=== PATIENT | male | born 1965 | race Caucasian/White ===

== ENCOUNTER 2018-06-16 15:03 | Inpatient (IN) | payer BC ==
[2018-06-16] MEDS ORDERED: Diltiazem 125 MG in Sodium Chloride 0.9% 100 ML IVPB SCH (16:00)
[2018-06-16] MEDS ORDERED: Acetaminophen 500 MG TAB ONE (16:22)
[2018-06-16] MEDS ORDERED: Enoxaparin Sodium 100 MG/ML SYRINGE ONE (17:11)
[2018-06-16] MEDS ORDERED: Enoxaparin Sodium 40 MG/0.4 ML SYRINGE ONE (17:11)
[2018-06-16 17:20] LABS: CKMB 1.5 ng/mL (0-6.6); Troponin I Less than 0.010 ng/mL (< 0.028)
[2018-06-16] MEDS ORDERED: Guaifenesin DM 100-10/5 ML UDCUP PO PRN (19:59)
[2018-06-16] MEDS ORDERED: Senokot S 8.6-50 MG TAB PO PRN (19:59)
[2018-06-16] MEDS: chlordiazePOXIDE HCl 5 MG CAP PO SCH (20:53)
[2018-06-16] MEDS: Sodium Chloride 0.9% 1,000 ML IV SCH (20:53)
[2018-06-16] MEDS: Metoprolol Tartrate 50 MG TAB PO SCH (20:53)
[2018-06-16] MEDS ORDERED: Vancomycin HCl 1 GM in Premix Bag 1 BAG IVPB SCH (21:00)
[2018-06-16 23:33] LABS: Troponin I Less than 0.010 ng/mL (< 0.028)
[2018-06-16] MEDS: Piperacillin/Tazobactam 3.375 GM in Sodium Chloride 0.9% 100 ML IVPB SCH (23:44)
[2018-06-16] MEDS: Acetaminophen 325 MG TAB PO PRN (23:51)
[2018-06-17 01:24] LABS: Lactic Acid 1.2 mmol/L (0.5-2.2)
[2018-06-17] MEDS: Vancomycin HCl 1.75 GM in Sodium Chloride 0.9% 500 ML IVPB SCH ×2 (01:26→15:27)
--- NOTE | 2018-06-17 01:39 | HP ---
REASON FOR ADMISSION: Atrial fibrillation with rapid ventricular response, left hand cellulitis with abscess around left little finger. HISTORY OF PRESENT ILLNESS: Patient gives history of having a splinter injury to his left fifth finger on Saturday. He tried to dig it up on Saturday. Patient had swelling of the hand and finger as well along with purulent discharge from the place where he tried to dig it up. He went to [facility] on Saturday evening and was given antibiotics. Patient had fever of 100 degrees at home. No complaints of chest pain or palpitation. His initial EKG showed atrial fibrillation with RVR. He has no prior history of atrial fibrillation. No prior cardiac workup. Has no exertional dyspnea or chest pain. PAST MEDICAL AND SURGICAL HISTORY: Hypertension, takes 2 medications for the same and does not recall the name; gout; back surgery; left ankle surgery; has chronically swollen left foot due to fusion. CURRENT MEDICATIONS: Takes 2 medications for hypertension. He does not recall. ALLERGIES: SULFA. PERSONAL HISTORY: Drinks 8-10 beers on most days, does not abuse drugs. No history of smoking. FAMILY HISTORY: Mother is living and is in a residential. Father of massive AR at the age of 57 years. REVIEW OF SYSTEMS: The following complete review of systems was negative, unless otherwise mentioned in the HPI or below: Constitutional: Weight loss or gain, ability to conduct usual activities. Skin: Rash, itching. Eyes: Double vision, pain. ENT/Mouth: Nose bleeding, neck stiffness, pain, tenderness. Cardiovascular: Palpitations, dyspnea on exertion, orthopnea. Respiratory: Shortness of breath, wheezing, cough, hemoptysis, fever, or night sweats. Gastrointestinal: Poor appetite, abdominal pain, heartburn, nausea, vomiting, constipation, or diarrhea. Genitourinary: Urgency, frequency, dysuria, nocturia. Musculoskeletal: Pain, swelling. Neurologic/Psychiatric: Anxiety, depression. Allergy/Immunologic: Skin rash, bleeding tendency. PHYSICAL EXAMINATION: GENERAL: Patient is a 53-year-old male who is currently not in any acute distress. VITAL SIGNS: Blood pressure 116/74, pulse 120 per minute, respiratory rate 18 per minute, temperature 100.7 degrees Fahrenheit, saturating 97% on room air. NECK: Supple, no elevated JVD. HEENT: Extraocular muscles intact. Pupils reacting to light. Oral cavity mucous membranes are moist. No exudates or congestion. CARDIOVASCULAR SYSTEM: S1, S2 heard. Regular rhythm. RESPIRATORY SYSTEM: Air entry 1+ bilateral. Scattered rhonchi plus no rales or wheezes. ABDOMEN: Soft, bowel sounds heard. No tenderness, rigidity, or guarding. EXTREMITIES: Left hand is swollen and patient has edema of left little finger with purulent discharge on the medial aspect with a puncture hole at the proximal phalanx. No calf tenderness or ischemic gangrene in the foot. CENTRAL NERVOUS SYSTEM: No gross focal deficits noted. Patient is alert, awake , oriented well. PSYCHIATRIC SYSTEM: Patient's mood is euthymic. No hallucinations or delusions. LABORATORY AND X-RAY FINDINGS: EKG done shows atrial fibrillation with RVR at 126 beats per minute. Chest x-ray done shows no acute cardiopulmonary abnormalities. Influenza A and B antigens are negative. White count of 14, H& H 15 and 45, platelet count 228, MCV is 90 with 91% neutrophils. Sodium 133, potassium 3.3, serum bicarbonate 21, BUN 37, creatinine 2.2, serum glucose 135. Lactic acid 3.4. Liver enzymes are within normal limits. Albumin is 3.7. First set of troponin is negative. CLINICAL IMPRESSION AND PLAN: Patient will be admitted to telemetry for new- onset atrial fibrillation with RVR, sepsis, left hand cellulitis, acute kidney injury. Patient will be gently hydrated with normal saline at 70 mL per hour. We will also place him on vancomycin and Zosyn for his left hand cellulitis. We will consult Dr. Horton who is suction plate roller hand and patient likely needs a hand surgeon for the same. We will also consult Dr. Cruz who is suction plate roller hand for new onset atrial fibrillation with RVR. Patient has history of alcohol abuse and will be placed on Librium 5 mg 3 times daily. Please note, this needs to be held if patient's respiratory rate is less than 14 or he is drowsy. We will continue him on aspirin, Cardizem drip, Lopressor 50 mg twice daily, morphine p.r.n. for pain. Echo with 2D Doppler for LV function will be obtained. We will obtain BNP levels in the morning with morning labs. Blood cultures have been obtained in the ER and follow up on the results. A second set of troponin is ordered and will follow up on the results as well. DARLYN
[2018-06-17 05:50] LABS: Anion Gap 11 mmol/L (10-20); BUN (Urea Nitrogen) 28 mg/dL (8.4-25.7); Calc. Creatinine Clearance 135 mL/min (70-130); Calcium 8.2 mg/dL (7.8-10.44); Carbon Dioxide 16 mmol/L (22-29); Chloride 108 mmol/L (98-107); Estimated GFR-MDRD 56; Glucose 105 mg/dL (70-105); Potassium 3.3 mmol/L (3.5-5.1); Sodium 132 mmol/L (136-145)
[2018-06-17] MEDS: Piperacillin/Tazobactam 3.375 GM in Sodium Chloride 0.9% 100 ML IVPB SCH ×4 (05:57→23:19)
[2018-06-17 06:11] LABS: Band 15 % (5-11); Hemoglobin 14.5 g/dL (14.0-18.0); Lymphocytes 9 % (21-51); MDiff Complete? YES; Mean Corpuscular HGB CONC 32.9 g/dL (32.0-36.0); Mean Corpuscular Hemoglobin 32.2 pg (27.0-31.0); Mean Platelet Volume 6.7 fL (7.4-10.4); Monocytes 8 % (0-10); Neutrophil 68 % (42-75); PLT Morphology Comment Appears Adequate; Platelet Count 194 thou/uL (130-400); RBC Distribution Width 11.8 % (11.5-14.5); RBC Morphology Normal; White Blood Cell (WBC) Count 10.3 thou/uL (4.8-10.8)
--- NOTE | 2018-06-17 08:48 | CON ---
DATE OF CONSULTATION: 06/17/2018 CHIEF COMPLAINT: Left hand infection. HISTORY OF PRESENT ILLNESS: Mr. Sommer is a 54-year-old male who developed an infection of the l eft small digit. He had a small splinter in his hand approximately 4 days ago. He dug this out with a pocket knife. He developed cellulitis around this area as well as some drainage. He presented to the emergency department several days ago and was placed on antibiotics. He had a repeat small I&D at the bedside. No purulence was obtained. His hand continued to swell and slightly worsen so he ca me back to the emergency department. He was admitted last night. He has been on intravenous antibio tics since then. He is responding. He has less swelling and less pain. He has had no further drain age. He has no palmar pain or forearm pain. Cellulitis is based around the splinter site. The patient also has atrial fibrillation with rapid ventricular response. He is on telemetry for thi s as well. PAST MEDICAL HISTORY: Hypertension, gout, chronic edema. PAST SURGICAL HISTORY: Previous lumbar surgery, left ankle fracture surgery. MEDICATIONS: Current medications for hypertension. ALLERGIES: SULFA. SOCIAL HISTORY: The patient drinks alcohol daily. He does not use drugs or smoke. FAMILY MEDICAL HISTORY: Noncontributory. REVIEW OF SYSTEMS: Positive for mild left hand pain, otherwise negative 10-point review of systems c urrently. PHYSICAL EXAMINATION: VITAL SIGNS: Temperature is 98.6, pulse is 98, respiratory rate 20, oxygen saturation 94, blood pres sure is 91/54. GENERAL: He is alert and oriented, sitting upright, in no apparent distress. RESPIRATORY: Breathing comfortably. ABDOMEN: Soft, nontender and nondistended. MUSCULOSKELETAL: The patient's left small digit has erythema and swelling, although the skin is wrin sienna suggestive of decreased swelling. Not significantly warm. He has no purulence. No abscess fo rmation is palpable. He is able to flex and extend the digit. No sign of flexor tenosynovitis. IMPRESSION: A 53-year-old male with a left finger cellulitis related to splinter and atrial fibrilla tion. PLAN: Regarding the finger, the patient should continue his intravenous antibiotics. He seems to be responding well to these. He could likely be converted to oral antibiotics tomorrow. At this point , I do not see any need for surgical intervention. We will continue to follow and ensure that he imp roves. If he worsens or develops a focal abscess we can consider irrigation and debridement. He tani l have ongoing medical care.
[2018-06-17] MEDS ORDERED: Enoxaparin Sodium 30 MG/0.3 ML SYRINGE SC SCH (09:00)
[2018-06-17] MEDS: Metoprolol Tartrate 50 MG TAB PO SCH ×3 (10:39→21:08)
--- NOTE | 2018-06-17 11:14 | PDOC.PN ---
- Subjective Encounter Start Date: 06/17/18 Encounter Start Time: 09:00 Subjective: no sob or chest pain -: is feeling better - Objective Resuscitation Status: Resuscitation Status FULL:Full Resuscitation MAR Reviewed: Yes Vital Signs & Weight: Vital Signs (12 hours) Temp Pulse Resp BP BP Pulse Ox 06/17/18 08:00 98.2 F 79 16 100/65 96 06/17/18 04:00 98.6 F 98 20 91/59 L 94 L 06/17/18 00:00 102.9 F H Weight Weight 330 lb 8 oz I&O: 06/16/18 06/17/18 06/18/18 06:59 06:59 06:59 Intake Total 1292 Balance 1292 Result Diagrams: 06/17/18 05:17 06/17/18 05:17 Phys Exam - Physical Examination HEENT: PERRLA, moist MMs Neck: no JVD, supple Respiratory: no wheezing, no rales Cardiovascular: no significant murmur, irregular Gastrointestinal: soft, non-tender, positive bowel sounds Musculoskeletal: pulses present left ring finger base has purulence with hand edema Neurological: non-focal, moves all 4 limbs Psychiatric: normal affect, A&O x 3 Dx/Plan (1) Afib Code(s): I48.91 - UNSPECIFIED ATRIAL FIBRILLATION Status: Acute Comment: new onset (2) Sepsis Code(s): A41.9 - SEPSIS, UNSPECIFIED ORGANISM Status: Acute Qualifiers: Sepsis type: sepsis due to unspecified organism Qualified Code(s): A41.9 - Sepsis, unspecified organism (3) Cellulitis of left hand Code(s): L03.114 - CELLULITIS OF LEFT UPPER LIMB Status: Acute (4) HTN (hypertension) Code(s): I10 - ESSENTIAL (PRIMARY) HYPERTENSION Status: Chronic Qualifiers: Hypertension type: essential hypertension Qualified Code(s): I10 - Essential (primary) hypertension (5) Alcohol abuse Code(s): F10.10 - ALCOHOL ABUSE, UNCOMPLICATED Status: Chronic (6) Obesity Code(s): E66.9 - OBESITY, UNSPECIFIED Status: Chronic Qualifiers: Body mass index: BMI 39.0-39.9 - Plan is on cardizem drip, may dc after oral cardizem 240mg x1 dose -: start eliquis, asp, lopressor 50mg bid, echo pending -: continue vanc and zosyn for left hand cellulitis -: librium for alc wd -: cardio consult * . Review of Systems - Medications/Allergies Allergies/Adverse Reactions: Allergies Allergy/AdvReac Type Severity Reaction Status Date / Time Sulfa (Sulfonamide Allergy Verified 06/16/18 15:53 Antibiotics) Medications: Current Medications Acetaminophen (Tylenol) 650 mg PO Q4H PRN PRN Reason: Headache/Fever/Mild Pain (1-3) Last Admin: 06/16/18 23:51 Dose: 650 mg Apixaban (Eliquis) 5 mg PO BID [facility] Aspirin (Aspirin Chewable) 81 mg PO DAILY [facility] Last Admin: 06/17/18 10:39 Dose: 81 mg Chlordiazepoxide HCl (Librium) 5 mg PO TID [facility] Last Admin: 06/16/18 20:53 Dose: 5 mg Diltiazem HCl (Cardizem Cd) 120 mg PO BID [facility] Guaifenesin/Dextromethorphan (Robitussin Dm) 15 ml PO Q4H PRN PRN Reason: Cough Diltiazem HCl 125 mg/ Sodium (Chloride) 125 mls @ 5 mls/hr IVPB INF [facility] Last Admin: 06/16/18 19:00 Dose: 125 mls Sodium Chloride (Normal Saline 0.9%) 1,000 mls @ 70 mls/hr IV [id number] [facility] Last Admin: 06/16/18 20:53 Dose: 1,000 mls Piperacillin Sod/Tazobactam (Sod 3.375 gm/ Sodium Chloride) 100 mls @ 200 mls/ hr IVPB Q6HR [facility] Last Admin: 06/17/18 05:57 Dose: 100 mls Vancomycin HCl 1.75 gm/ Sodium (Chloride) 500 mls @ 250 mls/hr IVPB 0200,1400 [facility] Last Admin: 06/17/18 01:26 Dose: 500 mls Metoprolol Tartrate (Lopressor) 50 mg PO BID [facility] Last Admin: 06/17/18 10:46 Dose: Not Given Morphine Sulfate (Morphine) 2 mg SLOW IVP Q4H PRN PRN Reason: Chest Pain/BP Elevations Senna/Docusate Sodium (Senokot S) 2 tab PO BID PRN PRN Reason: Constipation Sodium Chloride (Flush - Normal Saline) 10 ml IVF Q12HR [facility] Last Admin: 06/17/18 10:39 Dose: Not Given Sodium Chloride (Flush - Normal Saline) 10 ml IVF PRN PRN PRN Reason: Saline Flush
[2018-06-17] MEDS: chlordiazePOXIDE HCl 5 MG CAP PO SCH ×3 (11:23→21:01)
[2018-06-17] MEDS ORDERED: Sodium Chloride 0.9% 250 ML IVPB SCH (13:15)
[2018-06-17 13:25] VITALS: BMI 39.2
[2018-06-17] MEDS: Sodium Chloride 0.9% 1,000 ML IV SCH (17:42)
[2018-06-17] MEDS ORDERED: Digoxin 0.5 MG/2 ML AMP SLOW IVP SCH (18:45)
[2018-06-17] MEDS: Acetaminophen 325 MG TAB PO PRN (21:07)
[2018-06-17] MEDS: Apixaban 5 MG TAB PO SCH (21:08)
[2018-06-17] MEDS ORDERED: Melatonin 3 MG TAB PO PRN (22:16)
[2018-06-18] MEDS ORDERED: Sodium Chloride 0.9% 1,000 ML IV SCH (00:30)
[2018-06-18] MEDS: Vancomycin HCl 1.75 GM in Sodium Chloride 0.9% 500 ML IVPB SCH ×2 (01:57→13:00)
[2018-06-18] MEDS: Sodium Chloride 0.9% 1,000 ML IV SCH ×2 (02:05→14:13)
[2018-06-18] MEDS: Digoxin 0.5 MG/2 ML AMP SLOW IVP SCH ×2 (02:10→09:02)
--- NOTE | 2018-06-18 02:22 | CON ---
CARDIOLOGY CONSULTATION DATE OF ADMISSION: 06/16/2018 DATE OF CONSULTATION: 06/17/2018 INDICATION FOR CONSULTATION: This is a very pleasant 53-year-old gentleman who denies any previous c ardiac history who presented after having an infected hand wound, was noted to be in atrial fibrillat ion with rapid ventricular response. We were asked to see the patient due to the atrial fibrillation . He has had no previous history of atrial fibrillation and denied any chest pain or shortness of br eath and was unaware that he had tachycardia associated with the atrial fibrillation nor that he is a [place] that he had any irregular heart rate. He does have a history of hypertension, otherwise, had no previous complaints with chest pain or shortness of breath. He works on a ranch and stays relativel y busy and has been asymptomatic. He does drink significant amount of beer. Unfortunately, 8-10 bee rs on most days, but he denies any tobacco abuse or any other significant illicit drug use. At this time, he is comfortable. He has had no complaints except for his hand and some swelling of the hand and some discomfort, but otherwise he is asymptomatic from a cardiac standpoint. PAST MEDICAL HISTORY: Significant for hypertension. He has had a left ankle surgeries and back surg eries. He has history of gout. Now he has had a hand infection at the left fifth digit. MEDICATIONS: His medications prior to admission, he was taking medicines for hypertension. ALLERGIES: He is allergic to SULFA. SOCIAL HISTORY: He works on a ranch. He has no tobacco abuse. He drinks significant amount of beer at least a 6-pack a day most days. FAMILY HISTORY: Father had myocardial infarction and at age 57. There is no other family histo ry of heart disease. REVIEW OF SYSTEMS: A 12-point review of systems unremarkable except for what is noted in the history of present illness with some complain of the left little finger discomfort and swelling also left fo ot swelling after previous surgery. Otherwise, he denied any chest pain or shortness of breath or an y disability otherwise, except for the walking problems with his left foot at times when it swells. Otherwise, 12-point review of system is unremarkable. PHYSICAL EXAMINATION: GENERAL: Reveals well-developed, well-nourished gentleman, somewhat reddish complexion. VITAL SIGNS: Blood pressure is 98/56, heart rate is in 60s to 100 and shows atrial fibrillation, res piratory rate is about 18, O2 saturation 96%. HEENT: Shows head to be normocephalic and atraumatic. Carotid pulses are present. I did not hear a ny bruits. CHEST: Clear to auscultation without rales, rhonchi or wheezing. CARDIOVASCULAR: Exam reveals an irregularly irregular rhythm with tachycardia, there were no signifi cant murmurs noted. ABDOMEN: Shows obesity with positive bowel sounds. EXTREMITIES: Show no clubbing or cyanosis. The left hand does show evidence of infection in the lef t fifth digit just at the base of the finger, also the left ankle is enlarged, but no significant annabella ma was noted. SKIN: Warm and dry. NEUROLOGIC: Appears to be intact. LABORATORY DATA: Shows hemoglobin 14.5, WBC of 10.3. He had 15 bands. Potassium is 3.3 with a crea tinine of 1.32. Cardiac enzymes are negative. EKG shows atrial fibrillation with rapid ventricular response, but no acute changes otherwise were noted. Echocardiogram somewhat difficult study to inte rpret; however, ejection fraction appears to be normal around 60%. He did have mild aortic and dalton l valve regurgitation. The left atrium is dilated at 5.5 cm. He also has mild pulmonary and mitral valve regurgitation. IMPRESSION: 1. Atrial fibrillation with rapid ventricular response. He has a low risk for an embolic phenomenon . His CHADS-VASc score is 1 and this is based on his hypertension. At this time, certainly I would not disagree with placing the patient on Eliquis since his left atrium is about 5.5 is highly unlikel y that he will be a candidate to undergo electrical cardioversion and maintain sinus rhythm, but woul d not want to cardiovert the patient now, but certainly see how he is doing, but since he has a very low risk of embolization, then we consider an ablation in this gentleman the future, but at this time will be rate control and then see how his heart rate does after he is resolved from the infection. 2. History of hypertension. At this time, the blood pressure on the low side, but this may be due t o sepsis. We are uncertain as what medications he is taking, but would continue his medications at t his time. I will also start him on digoxin for rate control with the atrial fibrillation. I would a gree with the antibiotics. He is on aspirin a day, as well as the Eliquis. He is also on diltiazem, which will also aid with the rate control of the atrial fibrillation and has also been placed on low dose beta-ember 50 mg twice a day. I would agree with his present management of the patient at is time, and that the main goal at this time would be to help resolve the infection and then to do wi th the atrial fibrillation. He may need to be seen by the cage supervisor to undergo possible ab lation, as I said before the left atrial size is 5.5 and this is very difficult to maintain sinus rhy thm with left atrium is more than 5 cm in diameter by using medications or by giving the patient elec trical cardioversion, because likely he will convert back to atrial fibrillation if we were even succ essful in converting him from his atrial fibrillation to sinus rhythm. At this time, the goal would be to rate control him and continue medications as you are. In the future, he may not even need to b e on the Eliquis as his CHADS-VASc score is only 1 and aspirin may be sufficient. Also some point in time, I would suggest he undergo stress testing to rule out evidence of underlying ischemia as a pos sible etiology of atrial fibrillation; however, I suspect this may be due to his alcohol use, but for tunately he continues to have a normal ejection fraction.
[2018-06-18] MEDS: Piperacillin/Tazobactam 3.375 GM in Sodium Chloride 0.9% 100 ML IVPB SCH ×2 (05:57→11:10)
[2018-06-18] MEDS: Metoprolol Tartrate 50 MG TAB PO SCH (09:07)
[2018-06-18] MEDS: Apixaban 5 MG TAB PO SCH (09:07)
[2018-06-18] MEDS: chlordiazePOXIDE HCl 5 MG CAP PO SCH ×2 (09:07→14:13)
[2018-06-18 13:28] LABS: Vancomycin, Trough 10.9 ug/mL
[2018-06-18 16:33] VITALS: BP 117/77; TEMP 98.8
--- NOTE | 2018-06-19 01:26 | DIS ---
DATE OF ADMISSION: 06/16/2018 DATE OF DISCHARGE: 06/18/2018 DISCHARGE DIAGNOSES: 1. New-onset atrial fibrillation with rapid ventricular response rate, improved. 2. Sepsis secondarily to #3, resolving. 3. Left hand cellulitis, improved. 4. Hypertension, stable. 5. Alcohol abuse. CONSULTATIONS: Dr. Kamaljit Horton with orthopedic surgery service; Dr. Bro Mendoza with cardio logy service. PERTINENT LABORATORY AND X-RAY FINDINGS: Sodium ranged between 132 to 133, potassium 3.3, creatinine ranged between 1.32 to 2.21. Estimated GFR ranged between 31 to 56. Lactic acid level ranged betwe en 1.2 to 2.3, troponin I negative x2. BNP 144. CBC showed a white blood cell count of 10.3, hemogl obin 14.5, hematocrit 44, platelet count 194 with 15% bands. Blood cultures x2 dated 06/16/2018 show ed no growth at 48 hours. Influenza A and B antigen negative on 06/16/2018. A 2D transthoracic echo cardiogram dated 06/17/2018 showed ejection fraction of 60%. [id number] left atrial enlargem ent. Left atrium measuring 5.5 cm. HOSPITAL COURSE: Patient was admitted to the telemetry unit after initially presenting with left-whitehead d cellulitis after sustaining a foreign body and attempting to remove mechanically at home. Patient was noted on telemetry monitoring with atrial fibrillation with rapid ventricular response initially managed with Cardizem infusion and IV fluids. Patient was also initiated on Lopressor and digoxin wi th overall rate improvement; however, patient did not convert to sinus mechanism. A 2D transthoracic echocardiogram was performed showing a [id number]-gv-aewtpo left atrial dilation of 5.5 cm. The patie nt's CHADS-VASc 2 score was noted at 1; however, patient was placed on aspirin 81 mg in addition to E liquis 5 mg b.i.d. due to the left atrial enlargement and new-onset atrial fibrillation of unclear ti me course. Patient to Cardiology did evaluate the patient with recommendations to continue rate cont rol measures and short-term anticoagulation until left hand cellulitis was improved. Patient may nee d additional for cardiac ischemic workup in the near future after rate control measures. Patient may also be deemed an appropriate candidate for electrical cardioversion at a future date. Patient was evaluated by the Orthopedic Surgery Service with recommendations for antibiotic coverage for his left hand cellulitis without further surgical intervention. Patient did have local incision and drainage at the bedside in the emergency room and received local wound care with overall improving cellulitis prior to discharge. Patient was cautioned regarding the use of ongoing use of alcohol and its ramif ications for long-term health care. I have examined the patient at time of discharge and discussed f larissa instructions. Patient verbalized understanding and agreement and ready for discharge on 02/2018. DISCHARGE MEDICATIONS: 1. Augmentin 875 mg 1 tab p.o. b.i.d. x10 days. 2. Eliquis 5 mg p.o. b.i.d. 3. Aspirin 81 mg p.o. daily. 4. Lanoxin 0.25 mg p.o. daily. 5. Diltiazem CD 120 mg p.o. b.i.d. 6. Lopressor 50 mg p.o. b.i.d. FOLLOWUP: Patient may follow up with his primary care provider, Dr. Negrito Hendrix within 7 days. Patient will follow up with Dr. Bro Mendoza with [facility] and to call her offic e for appointment time and date. CONDITION ON DISCHARGE: Stable. ACTIVITY: Ad derek. DIET: Heart healthy. CODE STATUS: FULL. DISPOSITION: Home on 06/18/2018.
[2018-06-19] MEDS ORDERED: Digoxin 0.25 MG TAB PO SCH (09:00)
== END 2018-06-18 17:29 | disposition home or self-care (01) | DRG 872 ==
LOC: ERS 15:03 → 2NO 17:53
PROVIDERS: ADMIT Internal Medicine; ATTEND Internal Medicine
DX: A41.9 Sepsis, unspecified organism (principal); L02.512 Cutaneous abscess of left hand; L03.114 Cellulitis of left upper limb; N17.9 Acute kidney failure, unspecified; I48.91 Unspecified atrial fibrillation; Z88.2 Allergy status to sulfonamides; F10.10 Alcohol abuse, uncomplicated; E66.9 Obesity, unspecified; Z68.39 Body mass index [BMI] 39.0-39.9, adult
CPT/HCPCS: 36415; 80048; 80202; 82553; 83605; 83880; 84484; 85025; 90471; 90686; 93005; 93306; 96365; 96372; 96376; G0008; J1160; J1650; J2543; J3370; J7050

== ENCOUNTER 2018-11-25 14:54 | Outpatient (CLI) | payer BC ==
[2018-11-25 15:22] LABS: Hemoglobin 15.7 g/dL (14.0-18.0); Mean Corpuscular HGB CONC 33.8 g/dL (32.0-36.0); Mean Corpuscular Hemoglobin 32.3 pg (27.0-31.0); Mean Corpuscular Volume 95.8 fL (78.0-98.0); Mean Platelet Volume 6.7 fL (7.4-10.4); Platelet Count 279 thou/uL (130-400); RBC Distribution Width 12.2 % (11.5-14.5); Red Blood Cell (RBC) Count 4.86 mill/uL (4.70-6.10); White Blood Cell (WBC) Count 9.7 thou/uL (4.8-10.8)
[2018-11-25 15:29] LABS: INR-International Normal Ratio 1.3; Prothrombin Time 15.8 SEC (12.0-14.7)
[2018-11-25 15:40] LABS: Anion Gap 12 mmol/L (10-20); BUN (Urea Nitrogen) 18 mg/dL (8.4-25.7); Calc. Creatinine Clearance 0 mL/min (70-130); Calcium 9.6 mg/dL (7.8-10.44); Carbon Dioxide 22 mmol/L (22-29); Chloride 109 mmol/L (98-107); Estimated GFR-MDRD Greater than 90; Glucose 113 mg/dL (70-105); Potassium 4.2 mmol/L (3.5-5.1); Sodium 139 mmol/L (136-145)
== END 2018-11-25 14:55 | disposition home or self-care (01) ==
LOC: LABBT 14:54
PROVIDERS: ATTEND Internal Medicine Cardiovascular Disease
DX: Z01.812 Encounter for preprocedural laboratory examination (principal); I48.91 Unspecified atrial fibrillation
CPT/HCPCS: 80048; 85027; 85610; 85730; 93005; 93010

== ENCOUNTER 2018-12-01 06:36 | Day surgery (SDC) | payer BC ==
[2018-11-25 15:20] VITALS: BMI 37.9
--- NOTE | 2018-12-01 15:44 | OP ---
DATE OF PROCEDURE: 12/01/2018 PROCEDURE PERFORMED: External cardioversion. REFERRING PHYSICIAN: Bonnie Mendoza MD REASON FOR PROCEDURE: Mr. Sommer is a 53-year-old man with prior history atrial fibrillation and flutter, which persisted. He has got left atrial enlargement, history of EtOH abuse. He was placed on Xarelto over a month ago, has been taking it persistently. He has also been placed on flecainide. Continues to be in an atrial flutter, possibly isthmus dependent cannot be ruled out. DESCRIPTION OF PROCEDURE: The patient received propofol by Anesthesia specialist. After adequate level of sedation achieved, a synchronized 200 joule shock promptly converted the patient back to sinus rhythm. The return rates are in the 40s right after cardioversion in sinus rhythm. CONCLUSION: Successful cardioversion. PLAN: Continue Xarelto and flecainide. Monitor for bradyarrhythmias, might consider holding diltiazem unless palpitations recur. Consider invasive ablation options if recurrent atrial fibrillation or flutter is seen. Job ID: [id number]
== END 2018-12-01 09:50 | disposition home or self-care (01) ==
LOC: CCL 06:36
PROVIDERS: ATTEND Internal Medicine Cardiovascular Disease
PROC: 5A2204Z Restoration of Cardiac Rhythm, Single (ICD-10-PCS; principal; 2018-12-01)
DX: I48.1 Persistent atrial fibrillation (principal); I48.92 Unspecified atrial flutter; I51.7 Cardiomegaly; Z88.8 Allergy status to other drugs, medicaments and biological substances
CPT/HCPCS: 92960

== ENCOUNTER 2019-08-14 13:50 | Outpatient (CLI) | payer BC ==
[2019-08-14 16:06] LABS: Hemoglobin 15.6 g/dL (14.0-18.0); Mean Corpuscular HGB CONC 34.3 g/dL (32.0-36.0); Mean Corpuscular Hemoglobin 32.9 pg (27.0-31.0); Mean Platelet Volume 7.1 fL (7.4-10.4); Platelet Count 268 thou/uL (130-400); RBC Distribution Width 11.6 % (11.5-14.5); Red Blood Cell (RBC) Count 4.73 mill/uL (4.70-6.10); White Blood Cell (WBC) Count 5.8 thou/uL (4.8-10.8)
[2019-08-14 16:12] LABS: INR-International Normal Ratio 1.6; PTT 30.5 SEC (22.9-36.1); Prothrombin Time 19.3 SEC (12.0-14.7)
[2019-08-14 16:24] LABS: Anion Gap 12 mmol/L (10-20); BUN (Urea Nitrogen) 9 mg/dL (8.4-25.7); Calc. Creatinine Clearance 0 mL/min (70-130); Calcium 9.3 mg/dL (7.8-10.44); Carbon Dioxide 25 mmol/L (22-29); Chloride 105 mmol/L (98-107); Estimated GFR-MDRD 86; Glucose 103 mg/dL (70-105); Sodium 138 mmol/L (136-145)
== END 2019-08-14 13:51 | disposition home or self-care (01) ==
LOC: LABBT 13:50
PROVIDERS: ATTEND Specialist
DX: Z01.818 Encounter for other preprocedural examination (principal); S61.402A Unspecified open wound of left hand, initial encounter
CPT/HCPCS: 80048; 85027; 85610; 85730; 93005; 93010

== ENCOUNTER 2019-08-18 05:37 | Observation (INO) | payer BC ==
[2019-08-14 15:18] VITALS: BMI 39.1
[2019-08-18] MEDS ORDERED: Heparin 10,000 UNITS/1 ML VIAL ONE ×2 (06:35→09:49)
[2019-08-18] MEDS ORDERED: Heparin (Artline) 1,500 ML ONE (06:36)
[2019-08-18] MEDS ORDERED: Midazolam HCl 2 mg/2 ml Vial ONE (07:26)
[2019-08-18] MEDS ORDERED: Fentanyl 100 MCG/2 ML VIAL ONE ×2 (07:26→10:34)
[2019-08-18] MEDS ORDERED: Isoproterenol 0.2 MG/1 ML AMP ONE (09:49)
[2019-08-18] MEDS ORDERED: Ondansetron PF 4 MG/2 ML Vial ONE (10:13)
[2019-08-18] MEDS ORDERED: Rocuronium Bromide 10 MG/ML (10ML VIAL) ONE (10:13)
[2019-08-18] MEDS ORDERED: Glycopyrrolate 0.2 MG/ML 5 ML SYRINGE ONE (10:13)
[2019-08-18] MEDS ORDERED: PROPOFOL 200 MG/20 ML VIAL ONE (10:13)
[2019-08-18] MEDS ORDERED: Labetalol HCl 100 MG/20 ML VIAL ONE (10:34)
[2019-08-18] MEDS ORDERED: Protamine Sulfate 50 MG/5 ML VIAL ONE (10:35)
--- NOTE | 2019-08-18 11:47 | OP ---
DATE OF PROCEDURE: 08/18/2019 PROCEDURE PERFORMED: Electrophysiology study with radiofrequency ablation. PREOPERATIVE DIAGNOSES: 1. Atrial fibrillation. 2. Atrial flutter. PROCEDURE IN DETAIL: The patient came to the EP lab in a postabsorptive state. Informed consent was obtained. A time-out was called. The patient was sedated by a member of the Anesthesia Staff. Once the patient was adequately sedated, the right and the left femoral areas as well as the jugular area were prepped and draped using sterile fashion. Using a modified Seldinger technique and with ultrasound-guided access, access was obtained x2 in the right femoral vein, x1 in the left femoral vein, and x1 in the right internal jugular vein. A 20-pole duo-Deca catheter was advanced from the right internal jugular vein with the distal 10 poles placed into the coronary sinus for left atrial pacing and recording. An intracardiac echo catheter was advanced in the left femoral vein, placed in the right atrium for intraprocedural monitoring. Heparin bolus was given to achieve an ACT greater than 350 seconds. After heparin bolus, transseptal puncture was performed x2 under ultrasound guidance, a 10-pole circular mapping catheter was placed into the left atrium. An electroanatomical map was created at the left atrium. A [employer] STSF J-curve catheter was advanced into the left atrium and radiofrequency was delivered in the left atrium in the antral location to ablate and isolate the left and the right pulmonary veins with care to titrate time in the posterior wall next to the esophagus. A temperature monitor was utilized as well. After isolation of the pulmonary veins, the catheter was withdrawn to the right atrium. Of note, ablation catheter was advanced into the left ventricle and pacing in the left ventricle was performed. No VA conduction was noted, although the patient was in atrial flutter. The catheter was withdrawn into the right atrium. His bundle recording was obtained, the HV interval was 51 milliseconds. Following this, radiofrequency ablation was delivered in the right atrium along the tricuspid valve isthmus area at the 6 o'clock position of the tricuspid valve between the valve and the inferior vena cava, resulting in termination of the atrial flutter as well as bidirectional block. Transisthmus time was over 200 milliseconds. Isoproterenol bolus was given and no change in transisthmus time was noted after a waiting period. The patient tolerated the procedure well and catheters were removed and hemostasis was obtained by placement of Vascade sheaths. The patient tolerated the procedure well and was discharged from the EP lab in stable condition. POSTOPERATIVE DIAGNOSES: 1. Atrial flutter. 2. Atrial fibrillation. COMPLICATIONS: None acute. Note, the patient did have a stable [id number] pericardial effusion, which was present prior to any left atrial instrumentation and was unchanged through the procedure. ESTIMATED BLOOD LOSS: Less than 30 mL. PROCEDURES PERFORMED: 1. Electrophysiology study. 2. Atrial fibrillation ablation. 3. Intracardiac echo placement. 4. 3D electroanatomical mapping. 5. Drug infusion. 6. Supraventricular tachycardia ablation of atrial flutter. 7. Left atrial pacing recording. 8. LV pacing and recording. CONCLUSIONS: 1. Successful isolation of pulmonary veins. 2. Successful ablation of right atrial flutter. RECOMMENDATIONS: The patient will continue anticoagulant therapy indefinitely and will follow up with Dr. Dejesus in about 6 weeks. Job ID: [id number]
[2019-08-18] MEDS ORDERED: Amlodipine 5 MG TAB PO SCH (12:15)
[2019-08-18] MEDS ORDERED: Metoprolol Tartrate 100 MG TAB PO SCH (12:15)
[2019-08-18] MEDS: Rivaroxaban 10 MG TAB PO SCH (16:17)
--- NOTE | 2019-08-18 17:41 | CON ---
DATE OF CONSULTATION: PRIMARY CARE PHYSICIAN: Dr. Negrito Hendrix. REASON FOR ADMISSION: Status post ablation. REASON FOR CONSULTATION: Medical management. HISTORY OF PRESENT ILLNESS: A 54-year-old male who has underlying history of AFib/A flutter and he was admitted by branch billing payroll clerk for ablation procedure, which was done earlier today and successful procedure and converted to sinus rhythm. The patient was prior on Xarelto therapy and he had injury over his left hand about a week ago, and he went to ER and x-ray was done, which was negative for any fracture, but subsequently, the patient was having left hand swelling and blood blister, which was gradually getting worse. The patient has hematoma on his left hand as well as bruises spreading to left upper extremity. The patient denies any chest pain, palpitation, or shortness of breath. REVIEW OF SYSTEMS: CONSTITUTIONAL: Negative for weight loss or gain, ability to conduct usual activities. SKIN: Negative for rash, itching. EYES: Negative for double vision, pain. ENT/MOUTH: Negative for nose bleeding, neck stiffness, pain, tenderness. CARDIOVASCULAR: Negative for palpitations, dyspnea on exertion, orthopnea. RESPIRATORY: Negative for shortness of breath, wheezing, cough, hemoptysis, fever or night sweats. GASTROINTESTINAL: Negative for poor appetite, abdominal pain, heartburn, nausea, vomiting, constipation, or diarrhea. GENITOURINARY: Negative for urgency, frequency, dysuria, nocturia. MUSCULOSKELETAL: Negative for pain, swelling. NEUROLOGIC/PSYCHIATRIC: Negative for anxiety, depression. ALLERGY/IMMUNOLOGIC: Negative for skin rash, bleeding tendency. Please see my HPI for pertinent positives and negatives. All other review of systems reviewed and negative except as mentioned in HPI. PAST MEDICAL HISTORY: 1. Hypertension. 2. Atrial fibrillation/flutter. 3. Morbid obesity. PAST SURGICAL HISTORY: 1. Left ankle surgery. 2. Back surgery. 3. Bone spur repair. 4. Ablation procedure. ALLERGIES: SULFA DRUGS. CURRENT HOME MEDICATIONS: 1. Amlodipine 5 mg daily. 2. Aspirin 325 mg daily. 3. Cardizem CD 120 mg p.o. daily. 4. Metoprolol 100 mg twice daily. 5. Xarelto 20 mg p.o. daily. FAMILY HISTORY: Mother is living and she lives in [facility]. Father of heart attack. SOCIAL HISTORY: The patient drinks alcohol occasionally. No smoking. No other illicit drug abuse. PAST PSYCHIATRIC HISTORY: Reviewed and negative. PHYSICAL EXAMINATION: VITAL SIGNS: Currently; temperature 97.5, pulse 110, respiratory rate 16, saturation 97% on room air, blood pressure 135/85, and weight 339 pounds. GENERAL: The patient is currently alert and awake, in no acute distress. HEAD: Normocephalic and atraumatic. EYES: Pupils round and reactive to light. Extraocular muscles intact. ENT: Oropharynx within normal limits. Moist mucous membranes. No oral lesion. No pharyngeal erythema. No exudate. NECK: Supple. No JVD. No thyromegaly. No carotid bruit. LUNGS: Clear to auscultation without any rhonchi or rales. CARDIAC: S1 and S2. Regular without any murmur. No gallop. No rub. ABDOMEN: Soft. Obesity present. Bowel sounds present. Nontender. Nondistended. No organomegaly. No mass. EXTREMITIES: Left hand is swollen with blister on dorsal aspect and bruise on palmar aspect that is spreading to forearm. Good capillary refill. Pulsation palpable on left hand at radial artery. No edema. Good distal pulsation on both lower extremity. NEUROLOGIC: Nonfocal examination. SIGNIFICANT LABORATORY DATA: CBC: WBC 5.8, hemoglobin 15.6, and platelet 268. INR 1.6. Sodium 138, potassium 4.0, chloride 105, carbon dioxide 25, anion gap 12, BUN 9, creatinine 0.91, glucose 103, and calcium 9.3. ASSESSMENT AND PLAN: Impression: 1. Atrial flutter/fibrillation status post ablation. 2. Left hand hematoma. 3. Hypertension. 4. Obesity with BMI 39. 5. Chronic anticoagulation. Plan: We will consult hand surgeon for evaluation as the patient had ablation procedure done. Then, the patient will be on Xarelto as well as the patient also has hematoma on his left hand, and that is why, it would be very difficult to continue both aspirin and Xarelto together. We will ask hand surgeon for their opinion. Given ablation procedure, the patient needs to be on blood thinner medicine as well. At this point, we will repeat CBC and BMP tomorrow. We will also check x-ray of the hand if desired by hand surgeon. His home medication reviewed and reconciled. Thank you for consult. We will follow up with you while in the hospital. Job ID: [id number]
[2019-08-18] MEDS: Metoprolol Tartrate 100 MG TAB PO SCH (20:09)
[2019-08-19 05:09] LABS: #Eosinphils 0.1 thou/uL (0.0-0.7); #Lymphocytes 1.4 thou/uL (1.20-3.40); #Monocytes 1.2 thou/uL (0.11-0.59); #Neutrophils 6.5 thou/uL (1.40-6.50); %Basophils 0.5 % (0.0-1.0); %Lymphocytes 15.2 % (21.0-51.0); %Monocytes 13.3 % (0.0-10.0); Hemoglobin 13.1 g/dL (14.0-18.0); Mean Corpuscular HGB CONC 33.9 g/dL (32.0-36.0); Mean Corpuscular Hemoglobin 33.4 pg (27.0-31.0); Mean Corpuscular Volume 98.4 fL (78.0-98.0); Mean Platelet Volume 6.9 fL (7.4-10.4); Platelet Count 256 thou/uL (130-400); RBC Distribution Width 11.6 % (11.5-14.5); Red Blood Cell (RBC) Count 3.91 mill/uL (4.70-6.10); White Blood Cell (WBC) Count 9.2 thou/uL (4.8-10.8)
[2019-08-19] MEDS: Metoprolol Tartrate 100 MG TAB PO SCH ×2 (05:59→20:07)
[2019-08-19] MEDS: Aspirin 325 MG TAB PO SCH (09:16)
[2019-08-19] MEDS: Amlodipine 5 MG TAB PO SCH (09:19)
[2019-08-19] MEDS ORDERED: PROPOFOL 200 MG/20 ML VIAL ONE (10:26)
[2019-08-19] MEDS ORDERED: Furosemide 40 MG TAB PO PRN (10:47)
[2019-08-19] MEDS: Sucralfate 1 GM TAB PO SCH ×3 (11:30→20:07)
--- NOTE | 2019-08-19 14:35 | PRG ---
DATE OF SERVICE: 08/19/2019 SUBJECTIVE: The patient was seen and examined at bedside. He is complaining about the left hand pain, rating at 4 on a scale from 1 to 10. He is able to tolerate food without any problems. He is not short of breath. He does not complain about any chest pain. OBJECTIVE: VITAL SIGNS: Blood pressure is 125/75, pulse is 70, temperature is 98.7, respiratory rate is 15, O2 saturation is 95% on room air. HEENT: His head is atraumatic and normocephalic. EYES are PERRLA. Sclerae are nonicteric. Oral mucosa is moist. NECK: Supple. LUNGS: Clear. HEART: S1, S2 normal. No S3. No S4. ABDOMEN: Soft, nontender, obese. EXTREMITIES: No clubbing or cyanosis. There is some swelling of the left hand which is wrapped. NEURO: He is alert and oriented x4. There is no any motor or sensory deficits. LABORATORY DATA: Labs showed white count of 9.2, hemoglobin of 13.1, hematocrit 38.5, platelet count 258,000. Creatinine 1.27, estimated GFR is 59. IMPRESSION: 1. Atrial flutter/fibrillation, status post ablation, doing well. 2. Left hand hematoma. We are waiting for hand surgeon to evaluate the situation. 3. Hypertension. 4. Obesity with BMI of 39. 5. Chronic anticoagulation. PLAN: Continue his current regimen with amlodipine, aspirin, diltiazem, furosemide, metoprolol, potassium, Xarelto, and sucralfate. Also we are waiting for Dr. Loredo to evaluate the patient's left hand and then he can be discharged from our perspective. Job ID: [id number]
--- NOTE | 2019-08-19 14:56 | PDOC.EP ---
- Subjective Date: 08/19/19 Time: 11:00 Interval History: follow up after PVAI/CTI ablation. No cardiac concerns or complaints today. + left hand pain - Review of Systems Constitutional: denies: chills, fever, malaise, sweats, weakness, other Respiratory: denies: cough, dry, hemoptysis, pleuritic pain, shortness of breath , SOB with excertion, sputum, wheezing, other Cardiology: denies: chest pain, edema, heart racing, light headedness, orthopnea , paroxysmal noc. dyspnea, palpitations Musculoskeletal: reports: hand pain. denies: unstable gait, falls, shoulder pain, leg pain, foot pain Neurological: denies: headache, vision changes - Objective Allergies/Adverse Reactions: Allergies Allergy/AdvReac Type Severity Reaction Status Date / Time Sulfa (Sulfonamide Allergy Verified 08/14/19 15:17 Antibiotics) Current Medications Amlodipine Besylate (Norvasc) 5 mg PO DAILY [facility] Last Admin: 08/19/19 09:19 Dose: 5 mg Aspirin (Aspirin) 325 mg PO DAILY [facility] Last Admin: 08/19/19 09:16 Dose: Not Given Diltiazem HCl (Cardizem Cd) 120 mg PO DAILY [facility] Last Admin: 08/19/19 09:19 Dose: 120 mg Furosemide (Lasix) 40 mg PO PRN PRN PRN Reason: SOB &/or Wheezing Metoprolol Tartrate (Lopressor) 100 mg PO BID [facility] Last Admin: 08/19/19 05:59 Dose: 100 mg Pantoprazole Sodium (Protonix) 40 mg PO DAILY [facility] Stop: 09/18/19 09:01 Potassium Chloride (K-Dur) 20 meq PO QAM-WM [facility] Stop: 08/22/19 08:01 Rivaroxaban (Xarelto) 20 mg PO 1700 [facility] Last Admin: 08/18/19 16:17 Dose: 20 mg Sodium Chloride (Flush - Normal Saline) 10 ml IVF PRN PRN PRN Reason: Saline Flush Sucralfate (Carafate) 1 gm PO ACHS [facility] Stop: 09/02/19 11:31 Last Admin: 08/19/19 11:30 Dose: 1 gm Vital Signs & Weight: Vital Signs Temp Pulse Resp BP Pulse Ox 08/19/19 11:11 98.7 F 70 15 125/75 95 08/19/19 07:27 98.5 F 63 16 124/67 96 08/19/19 03:40 98.8 F 78 16 133/81 94 L Admit Weight 330 lb Weight 330 lb I/O: I/O 08/18/19 08/19/19 08/20/19 06:59 06:59 06:59 Intake Total 1540 Balance 1540 - Quality Measures Condition: Atrial Fibrillation/Flutter (hx or current) (OAC needed recent ablation) CV meds: Xarelto: Yes - Physical Exam General: alert & oriented x3, appears well, no apparent distress, speech clear, affect appropriate HEENT: mucus membranes moist, normocephaly Neck: supple neck, midline trachea, no JVD/HJR, no masses, no bruit, no lymphadenopathy, no thromegaly Cardiology: regular rate and rhythm, no murmur, regular rate, regular rhythm, PMI nondisplaced Lungs: clear to auscultation, normal breath sounds, normal exam, no wheeze, rales, rhonchi, no wheezes, no rales, no rhonchi Neurology: cranial nerve 2-12 intact, grossly intact, motor function intact, sensory function intact, negative rhomberg, coordination normal, no lateralizing findings Abdomen: unremarkable, active bowel sounds, soft, non-tender, no masses, no pulsations/bruits, no hepatosplenomegaly, HJR negative Extremities: dry, strong pulses, warm Skin: groin sites stable (right EJ site stable as well), hematoma (left hand. bandaged. pending I&D with hand surgeon) - Labs Result Diagrams: 08/19/19 04:35 08/19/19 04:35 - EKG Interpretation EKG Method: Telemetry EKG shows: Sinus rhythm - Assessment/Plan Assessment/Plan: 1. Atrial arrhythmias -s/p CTI and PVAI ablation on 08/18/2019 - maintaining SR - needs continued OAC post ablation 2. Left hand trauma - significant hematoma, at risk for developing compartment syndrome - Dr del valle consulted who is reportedly planning I&D for hematoma evacuation. Stable post ablation. needs continued OAC with xarelto as ordered. Can DC home off antiarrhythmics. DC home with script for prontonix 40mg daily x 4 weeks, carafate 1 gram QID x 2 weeks, and PRN lasix 40mg & KCl 20mEq x 10 doses Follow up with EP in 6 weeks. Unlikely he will DC tonight after procedure but he is stable to DC at anytime from EP perspective. I have personally examined and assessed the patient and agree with the above findings and plan as documented by Freda Reese, [employer]ER HELPER
[2019-08-19] MEDS ORDERED: Sodium Chloride 0.9% 30 ML ONE (15:39)
[2019-08-19] MEDS ORDERED: Bacitracin Zinc Ointment 30 gm TUBE ONE (15:39)
[2019-08-19] MEDS ORDERED: Bupivacaine PF 0.5% 30 ML VIAL ONE (15:39)
[2019-08-19] MEDS ORDERED: Midazolam HCl 2 mg/2 ml Vial ONE (16:18)
[2019-08-19] MEDS ORDERED: Fentanyl 100 MCG/2 ML VIAL ONE (16:18)
[2019-08-19] MEDS ORDERED: Thrombin 5000 UNITS/5 ML VIAL ONE (17:08)
[2019-08-19] MEDS ORDERED: Promethazine HCl 25 MG/ML VIAL SLOW IVP PRN (17:50)
[2019-08-19] MEDS ORDERED: Promethazine HCl 25 MG/ML VIAL IM PRN ×2 (17:50→18:59)
[2019-08-19] MEDS ORDERED: Ondansetron HCl/PF 4 MG/2 ML Vial IVP PRN (17:50)
[2019-08-19] MEDS: Rivaroxaban 10 MG TAB PO SCH (18:02)
[2019-08-19] MEDS ORDERED: Morphine 4 MG/ML VIAL SLOW IVP PRN (18:57)
[2019-08-19] MEDS ORDERED: Vancomycin HCl 1 GM in Premix Bag 1 BAG IVPB SCH (19:15)
[2019-08-19] MEDS: oxyCODONE/Acetaminophen 5 mg/325 mg Tablet PO PRN (20:07)
[2019-08-20] MEDS ORDERED: Vancomycin 1.5 GRAM/300 ML BAG 1.5 GM in Premix Bag 1 BAG IVPB SCH (04:00)
[2019-08-20] MEDS: oxyCODONE/Acetaminophen 5 mg/325 mg Tablet PO PRN (06:10)
[2019-08-20] MEDS ORDERED: Potassium Chloride 20 MEQ TAB PO SCH (08:00)
--- NOTE | 2019-08-20 08:51 | OP ---
DATE OF PROCEDURE: 08/19/2019 PREOPERATIVE DIAGNOSES: 1. Left hand hematoma finding bullae underneath the skin necrosis early in an area of about 2.5 cm x 1 cm. 2. Hematoma, well-formed over a small bleeder in the ulna, venous circulation of the dorsal hand, approximately 100 mL of well-formed clot. No gross infection seen. POSTOPERATIVE DIAGNOSES: 1. Left hand hematoma finding bullae underneath the skin necrosis early in an area of about 2.5 cm x 1 cm. 2. Hematoma, well-formed over a small bleeder in the ulna, venous circulation of the dorsal hand, approximately 100 mL of well-formed clot. No gross infection seen. PROCEDURES PERFORMED: 1. Evacuation of hematoma. 2. Ligation of bleeder, left hand. 3. Wound debridement of left hand, superficial layer, level 90123. TOURNIQUET TIME: 9 minutes. Additional thrombin-soaked Gelfoam placed in the area because the patient will return to blood thinners orally. DESCRIPTION OF PROCEDURE: After successful general endotracheal anesthesia, the limb was prepped and draped. We then gave the patient 30 mL of 0.5% Marcaine in a field block completely around the area of subcutaneous fluctuance because we knew that we blood. We then underwent a nearly 8 cm incision that was zigzag, and underneath it medially, hematoma began to escape. He had an area of skin and marked amount of pressure that correspond to the half a size of the bullae, which was open and only had sanguinous fluid, no infection. We never saw gross pus even after we carefully removed in the 360 degree manner the entire hematoma. With the tourniquet inflated, we then irrigated this with 3 L normal saline and Pulsavac pressure, and then opened the wound edges. We debrided the wound edges down to where we thought would be living tissue almost 5 mm on each side of the wound circumferentially. This was only in the area where the bullae had been and cause compression necrosis of the skin. After this, we then placed normal saline soaked Ray-Meka and lap sponges into the wound, deflated tourniquet, and waited 5 minutes with pressure, lifted it up. We then saw oozing from multiple fossa. We then brought in additional help with thrombin-soaked Gelfoam. We saw a venous bleeder approximately 1 mm diameter that was bleeding the most of and we cauterized this as part of ligation of the bleeder, which may have been at the center of the hematoma. We irrigated with another 50 mL of normal saline, placed a thrombin-soaked Gelfoam in the area, where the most bleeding took place circumferentially and around the wound edges deep between the wound, the skin and the fascia. We then placed normal saline soaked 4x4s dressing type sponges in the wound, dry dressing type sponges, ABD, two Kerlix's, and Roderick wrap. He left the operating room without evidence of anesthetic or operative complication. Job ID: [id number]
[2019-08-20] MEDS: Aspirin 325 MG TAB PO SCH (09:01)
[2019-08-20] MEDS: Amlodipine 5 MG TAB PO SCH (09:01)
[2019-08-20] MEDS: Sucralfate 1 GM TAB PO SCH ×2 (09:01→13:30)
[2019-08-20] MEDS: Metoprolol Tartrate 100 MG TAB PO SCH (09:02)
[2019-08-20 12:01] VITALS: BP 129/79; TEMP 98.4
--- NOTE | 2019-08-20 16:28 | PDOC.EP ---
- Subjective Date: 08/20/19 Time: 08:00 Interval History: follow up after PVAI/CTI ablation. No cardiac concerns or complaints today. + left hand pain after procedure last night - Review of Systems Constitutional: denies: chills, fever, malaise, sweats, weakness, other Respiratory: denies: cough, dry, hemoptysis, pleuritic pain, shortness of breath , SOB with excertion, sputum, wheezing, other Cardiology: denies: chest pain, edema, heart racing, light headedness, paroxysmal noc. dyspnea, orthopnea, palpitations, passing out, pleuritic pain, pressure, swelling, other Musculoskeletal: reports: hand pain - Objective Allergies/Adverse Reactions: Allergies Allergy/AdvReac Type Severity Reaction Status Date / Time Sulfa (Sulfonamide Allergy Verified 08/14/19 15:17 Antibiotics) Vital Signs & Weight: Vital Signs Temp Pulse Resp BP BP Pulse Ox 08/20/19 11:30 98.4 F 57 L 16 129/79 97 08/20/19 09:01 60 138/82 08/20/19 07:17 98.2 F 60 17 138/82 96 08/20/19 06:08 97.8 F 75 18 142/84 H 94 L Admit Weight 330 lb Weight 330 lb I/O: I/O 08/19/19 08/20/19 08/21/19 06:59 06:59 06:59 Intake Total 1540 960 Balance 1540 960 - Quality Measures Condition: Atrial Fibrillation/Flutter (hx or current) (OAC needed recent ablation) CV meds: Xarelto: Yes - Physical Exam General: alert & oriented x3, appears well, no apparent distress, speech clear, affect appropriate HEENT: mucus membranes moist, normocephaly Neck: supple neck, midline trachea, no JVD/HJR, no masses, no bruit, no lymphadenopathy, no thromegaly Cardiology: regular rate and rhythm, no murmur, regular rate, regular rhythm, PMI nondisplaced Lungs: clear to auscultation, no wheeze, rales, rhonchi Neurology: cranial nerve 2-12 intact, sensory function intact Extremities: other: (left hand bandaged) - Labs Result Diagrams: 08/19/19 04:35 08/19/19 04:35 - EKG Interpretation EKG shows: Sinus rhythm - Assessment/Plan Assessment/Plan: 1. Atrial arrhythmias -s/p CTI and PVAI ablation on 08/18/2019 - maintaining SR - needs continued OAC post ablation 2. Left hand trauma - significant hematoma, at risk for developing compartment syndrome - Dr del valle consulted who is reportedly planning I&D for hematoma evacuation. Stable post ablation and had I&D of left hand yesterday. He needs continued OAC with xarelto as ordered. Can DC home off antiarrhythmics. DC home with script for prontonix 40mg daily x 4 weeks, carafate 1 gram QID x 2 weeks, and PRN lasix 40mg & KCl 20mEq x 10 doses Follow up with EP in 6 weeks. Unlikely he will DC tonight after procedure but he is stable to DC at anytime from EP perspective.
--- NOTE | 2019-08-21 04:35 | DIS ---
DATE OF ADMISSION: 08/18/2019 DATE OF DISCHARGE: 08/20/2019 DIAGNOSES AT THE TIME OF DISCHARGE: 1. Atrial arrhythmias, status post CTI and PVAI ablation on 08/18/2019. 2. Left hand trauma and hematoma, status post incision and drainage and wound debridement of the left hand by Dr. Loredo on August 2019. HOSPITAL COURSE: The patient is a 54-year-old male with underlying history of atrial fibrillation/atrial flutter, who was admitted to the hospital by milling machine operator for ablation procedure which was done successfully and the patient stays in sinus rhythm. The patient was evaluated for left hand injury and he was seen by Dr. Loredo, hand surgeon, who did evacuation of hematoma and started the patient on antibiotic. Postprocedure time was uneventful. The patient is going to be discharged home today in good condition. His blood pressure is 129/79, pulse is 57, respiratory rate is 16, O2 saturation is 97% on room air, his temperature is 98.4. DISPOSITION: Home. FOLLOWUP: He is going to have his left hand dressing changed tomorrow and he will see Dr. Loredo for a followup on Saturday. Also, he will follow up with Dr. Dejesus, his milling machine operator, in 6 weeks. MEDICATIONS: At the time of discharge: 1. Furosemide 40 mg p.o. p.r.n. for swelling. 2. Potassium chloride 20 mEq once a day while taking furosemide, those two are just for 10 days p.r.n. as needed. 3. Also, pantoprazole 40 mg once a day for 2 weeks and sucralfate 1 g four times a day for 2 weeks. 4. Amlodipine 5 mg once a day. 5. Metoprolol 100 mg twice a day. This is metoprolol tartrate and Xarelto 20 mg once a day. 6. His aspirin is stopped and his Cardizem CD is stopped. 7. Also, he is going to be on clindamycin from Dr. Loredo 300 mg 4 times a day and tramadol 100 mg as needed p.r.n. for pain. Job ID: [id number]
--- NOTE | 2019-08-21 15:16 | EKG ---
Test Reason : POST ABLATION Blood Pressure : / mmHG Vent. Rate : 099 BPM Atrial Rate : 099 BPM P-R Int : 170 ms QRS Dur : 096 ms QT Int : 368 ms P-R-T Axes : 064 023 074 degrees QTc Int : 472 ms Normal sinus rhythm Normal ECG When compared with ECG of 14-AUG-2019 15:35, Sinus rhythm has replaced Atrial flutter QRS duration has decreased Non-specific change in ST segment in Inferior leads Confirmed by DR. Kate MELLO ([id number]) on 08/21/2019 3:15:35 PM Referred By: DEBO Confirmed By:DR. Kate MELLO
--- NOTE | 2019-08-21 15:19 | EKG ---
Test Reason : Blood Pressure : / mmHG Vent. Rate : 069 BPM Atrial Rate : 069 BPM P-R Int : 168 ms QRS Dur : 100 ms QT Int : 416 ms P-R-T Axes : 062 052 060 degrees QTc Int : 445 ms Normal sinus rhythm Normal ECG When compared with ECG of 18-AUG-2019 11:18, (Unconfirmed) Nonspecific T wave abnormality no longer evident in Inferior leads Confirmed by DR. Kate MELLO ([id number]) on 08/21/2019 3:19:13 PM Referred By: DEBO Confirmed By:DR. Kate MELLO
== END 2019-08-20 15:04 | disposition home or self-care (01) ==
LOC: CCL 05:37 → 2SW 11:02
PROVIDERS: ADMIT Internal Medicine; ATTEND Internal Medicine
PROC: 02583ZZ Destruction of Conduction Mechanism, Percutaneous Approach (ICD-10-PCS; principal; 2019-08-18)
PROC: 4A023FZ Measurement of Cardiac Rhythm, Percutaneous Approach (ICD-10-PCS; 2019-08-18)
PROC: 4A0234Z Measurement of Cardiac Electrical Activity, Percutaneous Approach (ICD-10-PCS; 2019-08-18)
PROC: 02K83ZZ Map Conduction Mechanism, Percutaneous Approach (ICD-10-PCS; 2019-08-18)
PROC: 0JCK0ZZ Extirpation of Matter from Left Hand Subcutaneous Tissue and Fascia, Open Approach (ICD-10-PCS; 2019-08-19)
DX: I48.0 Paroxysmal atrial fibrillation (principal); I48.92 Unspecified atrial flutter; S60.222A Contusion of left hand, initial encounter; I10 Essential (primary) hypertension; E66.01 Morbid (severe) obesity due to excess calories; Z68.39 Body mass index [BMI] 39.0-39.9, adult; Z87.891 Personal history of nicotine dependence; Z79.01 Long term (current) use of anticoagulants; Z79.82 Long term (current) use of aspirin; Z79.899 Other long term (current) drug therapy; Z88.2 Allergy status to sulfonamides; X58.XXXA Exposure to other specified factors, initial encounter
CPT/HCPCS: 36415; 76942; 82565; 85025; 85347; 87070; 87077; 87102; 87116; 87186; 87205; 87206; 93005; 93010; 93613; 93622; 93623; 93655; 93656; 93662; 96365; 96366; C1731; C1759; C1769; G0378; J1644; J2250; J2405; J2704; J2720; J3010; J3370; J3490; S0020

== ENCOUNTER 2019-08-26 11:01 | Day surgery (SDC) | payer BC ==
[2019-08-25 08:41] VITALS: BMI 37.9
[~2019-08-26 11:01] MED LIST: Dexamethasone 20 MG/5 ML VIAL ONE; Glycopyrrolate 0.2 MG/ML 5 ML SYRINGE ONE; Ketorolac Tromethamine 30 MG/ML VIAL ONE; Lidocaine 1% PF 5 ML VIAL ONE; Ondansetron PF 4 MG/2 ML Vial ONE; PROPOFOL 200 MG/20 ML VIAL ONE; Rocuronium Bromide 10 MG/ML (10ML VIAL) ONE
[2019-08-26 12:34] LABS: INR-International Normal Ratio 1.2; PTT 29.4 SEC (22.9-36.1); Prothrombin Time 15.5 SEC (12.0-14.7)
[2019-08-26 13:00] LABS: Band 2 % (5-11); Eosinophils 2 % (0-10); Hemoglobin 12.9 g/dL (14.0-18.0); Lymphocytes 19 % (21-51); MDiff Complete? YES; Mean Corpuscular HGB CONC 33.7 g/dL (32.0-36.0); Mean Corpuscular Hemoglobin 32.7 pg (27.0-31.0); Mean Corpuscular Volume 96.9 fL (78.0-98.0); Mean Platelet Volume 6.7 fL (7.4-10.4); Monocytes 14 % (0-10); Neutrophil 59 % (42-75); Platelet Count 315 thou/uL (130-400); Platelet Morphology Comment Appears Adequate; RBC Distribution Width 11.3 % (11.5-14.5); RBC Morphology Normal; Reactive Lymphocytes 3 % (0-10); Red Blood Cell (RBC) Count 3.96 mill/uL (4.70-6.10); White Blood Cell (WBC) Count 4.9 thou/uL (4.8-10.8)
[2019-08-26] MEDS ORDERED: Lidocaine 2% Jelly 5 ML TUBE ONE (13:16)
[2019-08-26] MEDS ORDERED: Fentanyl 100 MCG/2 ML VIAL ONE (13:16)
[2019-08-26] MEDS ORDERED: Bupivacaine PF 0.5% 30 ML VIAL ONE ×2 (13:35→15:02)
[2019-08-26] MEDS ORDERED: Thrombin 5000 UNITS/5 ML VIAL ONE ×2 (13:35→14:45)
[2019-08-26] MEDS ORDERED: Bacitracin Zinc Ointment 30 gm TUBE ONE (13:35)
--- NOTE | 2019-08-27 08:11 | OP ---
DATE OF PROCEDURE: 08/26/2019 PREOPERATIVE DIAGNOSIS: Left dorsal hand 6 x 5 cm open wound after hematoma evacuation (nonhealing wound). POSTOPERATIVE DIAGNOSES: 1. Left dorsal hand 6 x 5 cm open wound after hematoma evacuation (nonhealing wound). 2. No hematoma found, no infection, and only some residual of his previous thrombin and Gelfoam, which were removed. PROCEDURES PERFORMED: 1. Wound debridement. 2. 3 cm wound closure. 3. 5 x 4 cm split-thickness skin graft, harvested from ipsilateral thigh, depth 0.20 cm. ESTIMATED BLOOD LOSS: 50 mL. TOURNIQUET TIME: None. INDICATION: The patient returns for staged wound management after having a large hematoma evacuated. We already had bullous changes in the area of skin, completely necrotic, necessitated both debridement and stage wound management, where he was placed in a wet-to-dry dressing change underneath thrombin-soaked Gelfoam because the patient is on copious amounts of blood thinners. DESCRIPTION OF PROCEDURE: After successful general endotracheal anesthesia, the limb was prepped and draped. Time-out was done appropriately, this included a prep and drape of the thigh and a separate drape and prepping from the left digit hand forearm with tourniquet applied. Once the dressing was removed, we clearly could see after the prep that the patient had no gross infection. There is edge wound necrosis seen in a 1 cm x 3 mm area on the radial-sided wound, ulnar-sided wound, it was 1 cm x 1 mm area, which had to be debrided using the curette, tenotomy scissors, and Adson's for instrumentation. We also then used excisional technique and the depth was including the dermis and epidermis at this site. Once we finished that, we used a curette again to make sure there was no further remnant of the thrombin or Gelfoam, and once that was done, we irrigated with 3 L of normal saline bulb syringe pressure with antibiotics inside. We obtained hemostasis. We covered this wound with normal saline soaked gauze. We then gave the patient a total of 60 mL of 0.5% Marcaine (the patient weighs 300 pounds) without epinephrine, 30 at the hand, 30 at the projected site of the skin graft harvest. We harvested the skin graft using a power dermatome from [employer], depth 0.20 cm, and the size was approximately 5 x 4 cm skin grafts especially after it was meshed. We meshed it, placed it down, held it with nader. We then put bacitracin and Adaptic immediately on the gaps in the mesh graft and we placed mineral oil soaked ABD. It was stapled circumferentially around the wound to help bolster and achieve compression effect. We put thrombin and Gelfoam on the donor site, remained it to be completely dressed and covered the bolster with 2 packs of 4x4s, 2 Kerlix's, and 3-inch Rdoerick wrap. Likewise, we put the fresh Gelfoam and thrombin on the donor site all the way and it was then covered with Tegaderm. The patient had the 6-inch Roderick wrap applied to the this wound and a 3 and 4-inch Roderick applied to the hand wound, which was a bulky. The patient left the operating room without evidence of anesthetic operative complication. Job ID: [id number]
== END 2019-08-26 18:00 | disposition home or self-care (01) ==
LOC: SDC 11:01
PROVIDERS: ATTEND Orthopaedic Surgery Hand Surgery
PROC: 0HRGX74 Replacement of Left Hand Skin with Autologous Tissue Substitute, Partial Thickness, External Approach (ICD-10-PCS; principal; 2019-08-26)
DX: S61.402A Unspecified open wound of left hand, initial encounter (principal); I10 Essential (primary) hypertension; Z87.891 Personal history of nicotine dependence; Z79.01 Long term (current) use of anticoagulants; Z79.899 Other long term (current) drug therapy; Z88.2 Allergy status to sulfonamides; Z98.890 Other specified postprocedural states
CPT/HCPCS: 85025; 85610; 85730; J0690; J1100; J1885; J2001; J2405; J2704; J3010; J3490; S0020

== ENCOUNTER 2023-09-04 20:57 | Emergency (ER) | payer BC ==
[2023-09-04] MEDS ORDERED: Cyclobenzaprine 10 MG TAB ONE (22:52)
[2023-09-04] MEDS ORDERED: Acetaminophen/Codeine 30-300mg Tablet ONE (22:52)
[2023-09-04] MEDS ORDERED: Ketorolac Tromethamine 30 MG (1 mL) VIAL ONE ×2 (22:53→22:55)
== END 2023-09-04 23:04 | disposition home or self-care (01) ==
LOC: ERS 20:57
DX: S76.312A Strain of muscle, fascia and tendon of the posterior muscle group at thigh level, left thigh, initial encounter (principal); K21.9 Gastro-esophageal reflux disease without esophagitis; I10 Essential (primary) hypertension; I48.91 Unspecified atrial fibrillation; Z79.82 Long term (current) use of aspirin; Z79.899 Other long term (current) drug therapy; Z79.84 Long term (current) use of oral hypoglycemic drugs; X50.0XXA Overexertion from strenuous movement or load, initial encounter
CPT/HCPCS: 96372; J1885

== ENCOUNTER 2024-12-03 14:45 | Outpatient (CLI) | payer BC | END 2024-12-03 14:46 | disposition home or self-care (01) | LOC: BICMRI 14:45 | PROVIDERS: ATTEND Orthopaedic Surgery | DX: M23.91 Unspecified internal derangement of right knee (principal); M17.11 Unilateral primary osteoarthritis, right knee; M67.863 Other specified disorders of tendon, right knee ==